=== PATIENT | female | born 1965 | race Caucasian/White ===

== ENCOUNTER → 2017-10-12 | Outpatient (CLI) | payer OTHER ==
[~2017-10-12] MED LIST: ALBU.083IS IH; ALBU90OI INH; ALPR.5 PO; AMOX500 PO; AZIT250 PO; Amoxicillin875 MG PO; Aspirin EC325 MG PO; BUDE6HFA INH; CEFD300 PO; CLON.5 PO; CODBUTASA PO; CODGUAEL PO; CYCL10; CYCL10 PO; Cymbalta60 MG; DIPH50 PO; DOCU100 PO; DULO60; DULO60 PO; EPIN.3I IM; ESTR1 PO; ESTR2 PO; FAMO20; Floxin10 ML RIGHTEAR; GABA100 PO; GEMF600 PO; GLIP2.5ER PO; HYDACE5; HYDACE5 PO; HYDGUAL120 PO; IBUP200; IBUP800; Inderal40 MG PO; LEVSOD50 PO; MECL25 PO; MEDICAL MARIJUANNA; METF500 PO; METPRE4DP PO; MONT10T PO; Mobic15 MG PO; NAPR500; NAPR500 PO; NAPR550 PO; NEOCOLOTSU OT; NEOPOLHCSU OT; NEOPOLHYDS OT; OMEP20ER PO; ONDA4 PO; OXYACE10 PO; OXYACE5T PO; PENVK500 PO; PRED20 PO; PROACE50 PO; PROP10 PO; PROP20 PO; PSYL5.85P PO; Percocet 5-3251 EACH PO; QUET100; RANI150; SUMA25; SYMBICORT INHALER; TRAM50 PO; TRIAOIA; Ultram50 MG PO; Ventolin5 MG/1 ML INH; Zanaflex4 MG PO; Zofran Odt8 MG SL; Zyrtec10 MG PO; [UNRECOGNIZED DRUG - REMARK]
== END | disposition home or self-care (01) ==
LOC: LAB 15:18
DX: E11.9 Type 2 diabetes mellitus without complications (principal)
CPT/HCPCS: 82043

== ENCOUNTER 2018-07-13 09:04 | Day surgery (SDC) | payer OTHER ==
[~2018-07-13] VITALS: Ht 172.7 cm; Wt 145.6 kg
== END 2018-07-13 11:37 | disposition home or self-care (01) ==
LOC: ORSCMMR 09:04 → ORD 10:00 → ORSCMMR 10:00
PROVIDERS: Internal Medicine Gastroenterology
PROC: 0DBN8ZX Excision of Sigmoid Colon, Via Natural or Artificial Opening Endoscopic, Diagnostic (ICD-10-PCS; principal; 2018-07-13 10:00)
DX: Z12.11 Encounter for screening for malignant neoplasm of colon (principal); K63.5 Polyp of colon; D12.5 Benign neoplasm of sigmoid colon; E03.9 Hypothyroidism, unspecified; J44.9 Chronic obstructive pulmonary disease, unspecified; F32.9 Major depressive disorder, single episode, unspecified; E11.9 Type 2 diabetes mellitus without complications; Z79.84 Long term (current) use of oral hypoglycemic drugs; Z79.899 Other long term (current) drug therapy
CPT/HCPCS: 82947; 88305; J7120

== ENCOUNTER 2020-05-20 07:12 | Day surgery (SDC) | payer OTHER ==
[~2020-05-20] VITALS: Ht 172.7 cm; Wt 104.6 kg
[~2020-05-20 07:12] MED LIST changes: +BASAGLAR K100 UNIT/1; +Crestor20 MG PO; +EUTHYROX75 MC1 PO; +GLIP5 PO
--- NOTE | 2020-05-20 08:20 | NUR ---
05/20/20 0820 Irene CalleSandhya CHARTED BY LEROY JOHNSON RN
--- NOTE | 2020-05-21 12:51 | NUR ---
05/21/20 1251 YUDITH HUA NO SLING PROVIDED TO PATIENT
== END 2020-05-20 11:05 | disposition home or self-care (01) ==
LOC: ORSCSDS 07:12
PROVIDERS: Orthopaedic Surgery
PROC: 0LX80ZZ Transfer Left Hand Tendon, Open Approach (ICD-10-PCS; principal; 2020-05-20 08:45)
PROC: 0RQT0ZZ Repair Left Carpometacarpal Joint, Open Approach (ICD-10-PCS; principal; 2020-05-20 08:45)
PROC: 01N50ZZ Release Median Nerve, Open Approach (ICD-10-PCS; principal; 2020-05-20 08:45)
DX: M18.12 Unilateral primary osteoarthritis of first carpometacarpal joint, left hand (principal); G56.02 Carpal tunnel syndrome, left upper limb; E11.9 Type 2 diabetes mellitus without complications; J45.909 Unspecified asthma, uncomplicated; E78.5 Hyperlipidemia, unspecified; Z79.84 Long term (current) use of oral hypoglycemic drugs; Z79.899 Other long term (current) drug therapy; E66.9 Obesity, unspecified; Z68.35 Body mass index [BMI] 35.0-35.9, adult
CPT/HCPCS: 82947; A9270-GY; C1713; J0690; J1100; J1885; J2250; J2405; J2704; J2795; J3010; J7120

== ENCOUNTER → 2020-07-15 | Outpatient (CLI) | payer OTHER ==
[~2020-07-15] MED LIST changes: -BASAGLAR K100 UNIT/1; +BASAGLAR K100 UNIT/1 SC
== END | disposition home or self-care (01) ==
LOC: LAB SHORT 08:02 → PLD 08:02
DX: L57.0 Actinic keratosis (principal)
CPT/HCPCS: 88305

== ENCOUNTER 2023-02-22 08:42 | Emergency (ER) | payer OTHER ==
[~2023-02-22] VITALS: Ht 172.7 cm; Wt 106.6 kg
[2023-02-22 09:43] LABS: BASOPHILS ABSOLUTE AUTO 0.11 K/mm3 (0.00-0.23); BASOPHILS PERCENT AUTO 1 % (0-2); EOSINOPHILS ABSOLUTE AUTO 0.85 K/mm3 (0.00-0.68); EOSINOPHILS PERCENT AUTO 9 % (0-6); Hematocrit 36.9 % (33.0-51.0); IMMATURE GRAN ABSOLUTE AUTO 0.04 K/mm3 (0.00-0.10); IMMATURE GRAN PERCENT AUTO 0 % (0-1); LYMPHOCYTES ABSOLUTE AUTO 3.12 K/mm3 (0.84-5.20); LYMPHOCYTES PERCENT AUTO 34 % (21-46); MONOCYTES ABSOLUTE AUTO 0.53 K/mm3 (0.16-1.47); MONOCYTES PERCENT AUTO 6 % (4-13); Mean Corpuscular HGB 29.8 pg (26.0-34.0); Mean Corpuscular HGB Conc 32.5 g/dL (31.5-36.5); Mean Corpuscular Volume 92 fL (80-100); Mean Platelet Volume 10.1 fL (9.1-12.4); NEUTROPHILS ABSOLUTE AUTO 4.49 K/mm3 (1.96-9.15); NEUTROPHILS PERCENT AUTO 49 % (41-73); Platelet Count 391 K/mm3 (150-400); RDW Coefficient Variation 13.6 % (11.7-14.2); RDW Standard Deviation 45.9 fL (35.1-46.3); Red Blood Cell Count 4.03 M/mm3 (3.80-5.20); White Blood Cell Count 9.14 K/mm3 (4.00-11.30)
[2023-02-22 10:00] LABS: Albumin, Blood 3.6 g/dL (3.4-5.0); Albumin/Globulin Ratio 1.2 (0.8-1.8); Bilirubin, Total 0.3 mg/dL (0.1-1.0); Bun/Creatinine Ratio 23.9 (12.0-20.0); Calcium, Blood 8.7 mg/dL (8.5-10.1); Creatinine, Blood 0.71 mg/dL (0.40-1.00); Globulin, Blood 3.1 g/dL (2.2-4.0); Potassium, Blood 3.9 mmol/L (3.5-5.5); Total Protein, Blood 6.7 g/dL (6.4-8.2)
[2023-02-22 10:30] VITALS: BP 127/63
== END 2023-02-22 10:51 | disposition home or self-care (01) ==
LOC: ER 08:42
PROVIDERS: Emergency Medicine
DX: R00.1 Bradycardia, unspecified (principal); Z88.8 Allergy status to other drugs, medicaments and biological substances; Z79.899 Other long term (current) drug therapy; Z79.84 Long term (current) use of oral hypoglycemic drugs; G43.909 Migraine, unspecified, not intractable, without status migrainosus; E11.9 Type 2 diabetes mellitus without complications; E78.5 Hyperlipidemia, unspecified; J44.9 Chronic obstructive pulmonary disease, unspecified; K21.9 Gastro-esophageal reflux disease without esophagitis; E03.9 Hypothyroidism, unspecified; Z87.891 Personal history of nicotine dependence
CPT/HCPCS: 80053; 84484; 85025

== ENCOUNTER → 2023-03-21 | Outpatient (CLI) | payer OTHER ==
[2023-03-21 16:12] LABS: Microalb/Creat Ratio UR, Rand Unable to Calculate mg/g (0.000-30.000); Microalbumin, Random Urine <5.000 mg/L (0.000-20.000)
== END | disposition home or self-care (01) ==
LOC: LAB SHORT 13:41 → LAB 13:41
PROVIDERS: Family Medicine
DX: E11.9 Type 2 diabetes mellitus without complications (principal)
CPT/HCPCS: 82043; 82570

== ENCOUNTER 2023-08-23 09:08 | Day surgery (SDC) | payer OTHER ==
[2023-08-23] VITALS (14 sets, daily range): BP systolic 115–163; BP diastolic 73–125
[~2023-08-23] VITALS: Ht 172.7 cm; Wt 99.9 kg
[~2023-08-23 09:08] MED LIST changes: +ALOGLIPTIN25 M1 PO; +AMIT25 PO; +CODACE30 PO; +FENOFIBRATE145 MG PO; +IMITREX50 M1 PO; +PROM25; +TOPI25 PO; +TRULICITY0.75 MG/01 SC; +TRULICITY3 MG/0.5 M SC
--- NOTE | 2023-08-23 09:55 | NUR ---
08/23/23 0955 Khanh Russell HISTORY, CHART, MEDICATIONS AND ALLERGIES REVIEWED BEFORE START OF PROCEDURE. PATIENT CONFIRMS NPO STATUS AND AGREES WITH SCHEDULED PROCEDURE. 3-LEAD EKG REVIEWED WITH PHYSICIAN PRIOR TO START OF PROCEDURE. MONITOR INTACT WITH CONTINUOUS PULSE OXIMETRY,CAPNOGRAPHY, 3-LEAD EKG, INTERMITTENT BP. SUPPLEMENTAL O2 TO BE TITRATED THROUGHOUT PROCEDURE TO MAINTAIN O2 SATURATION ABOVE 90%. PATIENT DETERMINED TO BE ASA APPROPRIATE FOR PROPOFOL SEDATION PRIOR TO START OF PROCEDURE BY DR. KENDALL.
--- NOTE | 2023-08-23 10:25 | NUR ---
Ambulatory in Day Surgery History, Chart, Medications and Allergies reviewed before start of procedure.Patient confirms NPO status and agrees with scheduled surgery. Pre-Op teaching done. Pt verbalizes understanding. Patient States Post-Procedure ride home has been arranged.
--- NOTE | 2023-08-23 11:44 | NUR ---
Dressing to procedure site clean, dry, intact with no visible drainage, swelling, erythema or bruising noted. Discharged via wheelchair to private car for ride home.
== END 2023-08-23 11:46 | disposition home or self-care (01) ==
LOC: ORSCMMR 09:08 → ORD 10:00 → ORSCMMR 10:00
PROVIDERS: Internal Medicine Gastroenterology
PROC: 0DBL8ZX Excision of Transverse Colon, Via Natural or Artificial Opening Endoscopic, Diagnostic (ICD-10-PCS; principal; 2023-08-23 10:00)
DX: Z12.11 Encounter for screening for malignant neoplasm of colon (principal); Z86.010 Personal history of colon polyps; D12.3 Benign neoplasm of transverse colon; E11.9 Type 2 diabetes mellitus without complications; J44.9 Chronic obstructive pulmonary disease, unspecified; E03.9 Hypothyroidism, unspecified; Z79.85 Long-term (current) use of injectable non-insulin antidiabetic drugs; Z79.84 Long term (current) use of oral hypoglycemic drugs; Z79.899 Other long term (current) drug therapy
CPT/HCPCS: 82947; 88305; J2704; J7120